=== PATIENT | female | born 1960 | race Caucasian/White ===

== ENCOUNTER 2016-11-22 07:31 | Emergency (ER) | payer MEDICARE ==
[~2016-11-22] VITALS: Ht 167.6 cm; Wt 83.4 kg
[~2016-11-22 07:31] MED LIST: CLON.5 PO; DIAZ2 PO; ESTR.3 PO; LIPI20TA PO; MECL-62 PO; PROZ40CA PO; ZOFR4TAB3 SL
[2016-11-22 07:36] VITALS: BP 126/76; PULSE 82; RESP 18; TEMP 99.2; O2SAT 96
[2016-11-22] MEDS ORDERED: AMIT10TA6 PO (08:20)
[2016-11-22] MEDS ORDERED: AMOX500C PO (08:20)
--- NOTE | 2016-11-22 08:26 | PD ---
HPI Chief Complaint: Eye Problems/Injury Time Seen by Provider: 08:15 Travel History International Travel<30 days: No Contact w/Intl Traveler<30days: No Traveled to known affect area: No History of Present Illness HPI The patient is a 56-year-old female who presents to the emergency department for right eye difficulties. 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 The patient states she had a headache one week ago behind the right eye which resolved, however, last night she developed decreased vision of the right eye. The patient describes blurriness of the right eye with seeing "squiggles" throughout the entire right eye which are not located in one quadrant and continue to move, despite no eye movement. The patient denies any pain to the right eye. The patient moved to local area one year ago and does not have an provider relations representative. The patient denies any blunt trauma to the right eye. PFSH Past Medical History Atrial Fibrillation: Yes Anxiety: Yes Depression: Yes Cardiac Catheterization: Yes (CARDIAC ABLATIONS X2) Cardiovascular Problems: Yes (AFIB; ABLATION) High Cholesterol: Yes Fibromyalgia: Yes Immune Disorder: Yes (SJOGREN'S SYNDROME) ?: Not Menopausal: Yes : 4 Para: 4 Past Surgical History Cholecystectomy: Yes Hysterectomy: Yes Tonsillectomy: Yes Social History Alcohol Use: No Tobacco Use: No Substance Use: No Allergies-Medications (Allergen,Severity, Reaction): Coded Allergies: No Known Allergies (Unverified , 11/22/16) Reported Meds & Prescriptions Reported Meds & Active Scripts Active Reported Amoxicillin 500 Mg Cap 500 Mg PO BID Amitriptyline (Amitriptyline HCl) 10 Mg Tab Unknown Dose PO HS Premarin (Estrogens Conjugated) 0.3 Mg Tab 0.3 Mg PO DAILY Prozac (Fluoxetine HCl) 40 Mg Cap 40 Cap PO HS Review of Systems Except as stated in HPI: all other systems reviewed are Neg Eyes: Positive: Blurred Vision, Visual changes, No: Photophobia, Drainage, Redness, Foreign Body Sensation, Pain, Tearing HENT: Positive: Headaches (one week ago behind the right eye which has resolved ) Cardiovascular: No: Chest Pain or Discomfort Respiratory: No: Shortness of Breath Gastrointestinal: No: Nausea, Vomiting Physical Exam Narrative GENERAL: Awake, alert, nontoxic-appearing 56-year-old female who appears her stated age and is in no acute respiratory distress. SKIN: Focused skin assessment warm/dry. HEAD: Atraumatic. Normocephalic. EYES: Pupils equal and round. 4 mm bilateral and reactive. EOMs are intact without painful extraocular movements. ENT: No nasal bleeding or discharge. Mucous membranes pink and moist. NECK: Trachea midline. No JVD. MUSCULOSKELETAL: No obvious deformities. No clubbing. No cyanosis. No edema. NEUROLOGICAL: Awake and alert. No obvious cranial nerve deficits. Motor grossly within normal limits. Normal speech. PSYCHIATRIC: Appropriate mood and affect; insight and judgment normal. Data Data Last Documented VS Vital Signs Date Time Temp Pulse Resp B/P (MAP) Pulse Ox O2 Delivery O2 Flow Rate FiO2 11/22/16 08:58 84 16 128/76 (93) 97 Room Air 11/22/16 07:36 99.2 Orders Orders Atropine 1% Opth Soln (Atropine 1% Opth (11/22/16 08:30) [facility] Medical Decision Making Medical Screen Exam Complete: Yes Emergency Medical Condition: Yes Medical Record Reviewed: Yes Differential Diagnosis Differential diagnosis includes flash/floaters, retinal detachment, posterior uveitis, central retinal artery occlusion, central retinal vein occlusion, acute maculopathy, lens dislocation. Narrative Course Physical examination was performed, 1% atropine was applied to the right eye and funduscopic examination was performed. There was no obvious retinal detachment that I can visualize, however, patient's vision has changed from 20/ 20-20/40 with previous history of lens transplant and legal blindness of the left eye. Therefore, discussed the patient with the on-call provider relations representative, Dr. Parsons, who will evaluate the patient in the office today. Diagnosis Primary Impression: Vision changes Referrals: Nevaeh Parsons MD 1 day Follow-up in the office today Additional Instructions: Follow-up with Dr. Parsons, drive straight to the office to be evaluated sometime this morning. Wear sunglasses as the right eye is dilated. Med/Other Pt SpecificInfo: No Change to Meds Disposition: 01 DISCHARGE HOME Condition: Stable Javier Braun MD Nov 22, 2016 08:26
[2016-11-22] MEDS ORDERED: ATROPINE SULFATE 1% OPHT SOLN 2 ML BTL RIGHT EYE ONE (08:30)
[2016-11-22 08:58] VITALS: BP 128/76; PULSE 84; RESP 16; O2SAT 97
[2016-12-15] MEDS ORDERED: GABA300C5 PO (10:49)
== END 2016-11-22 09:07 | disposition home or self-care (01) ==
LOC: PHED 07:31
DX: H57.9 Unspecified disorder of eye and adnexa (principal); H54.62 Unqualified visual loss, left eye, normal vision right eye; E78.00 Pure hypercholesterolemia, unspecified; I48.91 Unspecified atrial fibrillation
CPT/HCPCS: 99283

== ENCOUNTER 2018-01-23 15:22 | Observation (INO) ==
--- NOTE | 2018-01-23 15:59 | ED ---
HPI General Chief Complaint: Dizziness Stated Complaint: Dizziness/Nausea Time Seen by Provider: 01/23/18 15:45 History of Present Illness HPI Narrative: 57-year-old woman presents with 2-hour history of sudden onset of dizziness, with a sense of unsteadiness and spinning, aggravated by movement or laying down, with associated nausea. She has no focal neurologic symptoms, no weakness, no difficulty speaking, no loss of consciousness or lightheadedness. Patient has past history of recurrent dizziness, diagnosed with vertigo, has been well treated with diazepam, but does not get much relief with meclizine. Characterization of patient's vertigo is difficult to obtain, and is not clear that she has had any formal otolaryngology consultation, but prior evaluation in 2016 shows a similar episode with a negative neurologic examination and negative CT scanning. Patient feels poorly in general, but no preceding constitutional or GI symptoms. Related Data Home Medications Medication Instructions Recorded Confirmed amitriptyline 50 mg PO DAILY 01/23/18 01/23/18 conjugated estrogens [Premarin] 0.45 mg PO DAILY 01/23/18 01/23/18 fluoxetine [Prozac] 40 mg PO DAILY 01/23/18 01/23/18 Allergies Allergy/AdvReac Type Severity Reaction Status Date / Time No Known Allergies Allergy Verified 01/23/18 15:31 [facility] Medical History Medical History Afib (Acute) H/O: hysterectomy (Acute) Menopausal depression (Acute) Surgical History Surgical History Hx of cholecystectomy (Acute) S/P ablation of atrial fibrillation (Acute) Social History Social History Substance History: No History of Abuse Second Hand Smoke Exposure: No Smoking Status: Never smoker How Often Do You Have a Drink Containing Alcohol: Monthly or less Exam Narrative Exam Narrative: GENERAL: Middle-aged woman, well-developed well-nourished, acutely ill, with nausea, retching fairly frequently. SKIN: Focused skin assessment warm/dry. HEAD: Atraumatic. Normocephalic. EYES: Pupils equal and round, markedly decreased visual acuity left eye secondary to prior amblyopia. No scleral icterus. No injection or drainage. No definite nystagmus ENT: No nasal bleeding or discharge. Mucous membranes pink and moist. Markedly positive stimulation of vertigo, with nausea and dizziness with head turning to the left, much less with head turning to the right NECK: Trachea midline. No JVD. CARDIOVASCULAR: Regular rate and rhythm. No murmur appreciated. RESPIRATORY: No accessory muscle use. Clear to auscultation. Breath sounds equal bilaterally. GASTROINTESTINAL: Abdomen soft, non-tender, nondistended. Hepatic and splenic margins not palpable. MUSCULOSKELETAL: No obvious deformities. No clubbing. No cyanosis. No edema. NEUROLOGICAL: Awake and alert. No obvious cranial nerve deficits. Motor grossly within normal limits. Normal speech. Unable to perform full Yovanny- Hallpike maneuvers due to acuity of vertigo and vomiting. PSYCHIATRIC: Appropriate mood and affect; insight and judgment normal. Course Initial Documented Vital Signs Temperature 97.7 F 01/23/18 15:27 Pulse Rate 82 01/23/18 15:27 Respiratory Rate 16 01/23/18 15:27 Blood Pressure 129/81 01/23/18 15:27 Pulse Oximetry 98 01/23/18 15:27 Last Documented Vital Signs Temperature 97.7 F 01/23/18 15:27 Pulse Rate 78 01/23/18 16:06 Respiratory Rate 18 01/23/18 16:06 Blood Pressure 130/82 01/23/18 16:06 Pulse Oximetry 97 01/23/18 16:06 Medical Decision Making MDM Narrative Medical decision making narrative: benzodiazepines, as well as antiemetics, will need hospitalization for control of symptoms and rehydration. Patient consulted with Dr. Stoddard, she accepts patient for transfer.Patient has an acute peripheral onset vertigo, likely benign positional, but with inadequate treatment in the emergency department with repeated rounds of benzodiazepines or antiemetics, will need hospitalization for symptom control and hydration. Dr. Stoddard consulted at 1910 hrs., except patient for admission. Medical Screen Exam Complete: Yes Emergency Medical Condition: Yes Lab Data Result diagrams: 01/23/18 16:30 01/23/18 16:30 Lab Results 01/23/18 01/23/18 01/23/18 Range/Units 16:30 16:30 16:30 CBC w Diff Auto diff final WBC 7.4 (4.0-11.0) th/mm3 RBC 5.14 (4.00-5.30) mil/mm3 Hgb 14.3 (11.6-15.3) gm/dL Hct 44.1 (35.0-46.0) % MCV 85.9 (80.0-100.0) fL MCH 27.9 (27.0-34.0) pg MCHC 32.5 (32.0-36.0) % RDW 12.9 (11.6-17.2) % Plt Count 232 (150-450) th/mm3 MPV 9.4 (7.0-11.0) fL Neut % (Auto) 67.7 (16.0-70.0) % Lymph % (Auto) 24.3 (9.0-44.0) % [place] % (Auto) 5.6 (0.0-8.0) % Eos % (Auto) 1.6 (0.0-4.0) % Baso % (Auto) 0.8 (0.0-2.0) % Neut # (Auto) 5.1 (1.8-7.7) th/mm3 Lymph # (Auto) 1.8 (1.0-4.8) th/mm3 [place] # (Auto) 0.4 (0.0-0.9) th/mm3 Eos # (Auto) 0.1 (0.0-0.4) th/mm3 Baso # (Auto) 0.1 (0.0-0.2) th/mm3 WBC Differential . Differential Comment . PT 9.9 (9.8-11.6) sec INR 1.0 Ratio Sodium 141 (136-145) meq/L Potassium 4.0 (3.5-5.1) meq/L Chloride 106 (98-107) meq/L Carbon Dioxide 27.9 (21.0-32.0) meq/L Anion Gap 7 (5-15) meq/L BUN 17 (7-18) mg/dL Creatinine 0.93 (0.50-1.00) mg/dL Estimated GFR 62 L (>89) mL/min Random Glucose 99 (74-106) mg/dL Calcium 8.8 (8.5-10.1) mg/dL Total Bilirubin 0.3 (0.2-1.0) mg/dL AST 18 (15-37) U/L ALT 19 (10-53) U/L Alkaline Phosphatase 66 (45-117) U/L Total Protein 7.6 (6.4-8.2) g/dL Albumin 3.8 (3.4-5.0) g/dL Imaging Data Radiologist's impression: Head CT 01/23/18 17:01 CONCLUSION: Negative noncontrast head CT. . Discharge Plan Discharge Disposition Patient Disposition: ED Admit(ED Internal Use Only) Discharge Condition Condition: Stable Discharge Details Diagnosis: Vertigo, Dizziness Physicians Team ED Provider: Stiven Keller Primary Care Provider: Mayco Payne Rxs /Orders / Referrals /Forms Prescriptions: No Action fluoxetine [Prozac] 40 mg Capsule 40 mg PO DAILY RF: 0 amitriptyline 50 mg Tablet 50 mg PO DAILY RF: 0 conjugated estrogens [Premarin] 0.45 mg Tablet 0.45 mg PO DAILY RF: 0 Discharge Interventions Interventions: Vital Signs Last Done: 01/23/18 16:06 Status ED Status: With Doctor
[2018-01-23 17:15] LABS: Baso # (Auto) 0.1 th/mm3 (0.0-0.2); Baso % (Auto) 0.8 % (0.0-2.0); Eos # (Auto) 0.1 th/mm3 (0.0-0.4); Eos % (Auto) 1.6 % (0.0-4.0); Hematocrit 44.1 % (35.0-46.0); Hemoglobin 14.3 gm/dL (11.6-15.3); Lymph # (Auto) 1.8 th/mm3 (1.0-4.8); Lymph % (Auto) 24.3 % (9.0-44.0); Mean Corpuscular HGB Conc 32.5 % (32.0-36.0); Mean Corpuscular Hemoglobin 27.9 pg (27.0-34.0); Mean Corpuscular Volume 85.9 fL (80.0-100.0); Mean Platelet Volume 9.4 fL (7.0-11.0); Mono # (Auto) 0.4 th/mm3 (0.0-0.9); Mono % (Auto) 5.6 % (0.0-8.0); Neut # (Auto) 5.1 th/mm3 (1.8-7.7); Neut % (Auto) 67.7 % (16.0-70.0); Platelet Count 232 th/mm3 (150-450); Red Blood Count 5.14 mil/mm3 (4.00-5.30); Red Cell Distribution Width 12.9 % (11.6-17.2); White Blood Count 7.4 th/mm3 (4.0-11.0)
[2018-01-23 17:31] LABS: Chloride 106 meq/L (98-107); Sodium 141 meq/L (136-145)
[2018-01-23 17:34] LABS: Albumin 3.8 g/dL (3.4-5.0); Anion Gap 7 meq/L (5-15); Calcium 8.8 mg/dL (8.5-10.1); Carbon Dioxide 27.9 meq/L (21.0-32.0); Glucose,Random 99 mg/dL (74-106)
[2018-01-23 17:35] LABS: Blood Urea Nitrogen 17 mg/dL (7-18); Prothrombin Time 9.9 sec (9.8-11.6)
[2018-01-23 17:37] LABS: Alanine Aminotransferase 19 U/L (10-53); Aspartate Aminotransferase 18 U/L (15-37)
[2018-01-23 17:38] LABS: Glomerular Filtration Rate 62 mL/min (>89)
[2018-01-23 17:39] LABS: Total Protein 7.6 g/dL (6.4-8.2)
[2018-01-23 17:40] LABS: Alkaline Phosphatase 66 U/L (45-117)
--- NOTE | 2018-01-23 18:05 | CT ---
EXAM DATE: 01/23/2018 6:00 PM EST AGE/SEX: 57 years / Female INDICATIONS: Dizziness. CLINICAL DATA: This is the patient's initial encounter. Patient reports that signs and symptoms have been present for 1 day and indicates a pain score of 0/10. MEDICAL/SURGICAL HISTORY: None. Hysterectomy. Cholecystectomy. RADIATION DOSE: 52.05 CTDI (mGy) COMPARISON: [facility], CT BRAIN W/O CONTRAST, 01/04/2016. . TECHNIQUE: CT of the head without contrast. Using automated exposure control and adjustment of the mA and/or kV according to patient size, radiation dose was kept as low as reasonably achievable to ob tain optimal diagnostic quality images. DICOM format image data is available electronically for revi ew and comparison. FINDINGS: Cerebrum: The ventricles are normal for age. No evidence of midline shift, mass lesion, hemorrhage or acute infarction. No extraaxial fluid collections are seen. Posterior Fossa: The cerebellum and brainstem are intact. The 4th ventricle is midline. The cerebe llopontine angle is unremarkable. Extracranial: The visualized portion of the orbits is intact. Skull: The calvaria is intact. No evidence of skull fracture. CONCLUSION: Negative noncontrast head CT. . Electronically signed by: Jamal Rojas MD 01/23/2018 6:04 PM EST
[2018-01-23] MEDS ORDERED: diazePAM 5 MG Tablet PO ONE (18:59)
[2018-01-23] MEDS ORDERED: Bisacodyl 10 MG Supp RECTAL PRN (19:10)
[2018-01-23] MEDS ORDERED: Acetaminophen 325 MG Tablet PO PRN (19:10)
[2018-01-23] MEDS: Senna/Docusate Sodium 8.6/50 MG Tablet PO SCH (21:36)
[2018-01-23] MEDS ORDERED: diazePAM 5 MG Tablet PO PRN (22:53)
[2018-01-24 06:59] LABS: Baso % (Auto) 0.6 % (0.0-2.0); Eos # (Auto) 0.1 th/mm3 (0.0-0.4); Eos % (Auto) 2.4 % (0.0-4.0); Hematocrit 41.3 % (35.0-46.0); Hemoglobin 13.8 gm/dL (11.6-15.3); Lymph # (Auto) 1.8 th/mm3 (1.0-4.8); Mean Corpuscular HGB Conc 33.5 % (32.0-36.0); Mean Corpuscular Hemoglobin 28.4 pg (27.0-34.0); Mean Corpuscular Volume 84.9 fL (80.0-100.0); Mean Platelet Volume 8.1 fL (7.0-11.0); Mono # (Auto) 0.5 th/mm3 (0.0-0.9); Neut # (Auto) 3.4 th/mm3 (1.8-7.7); Platelet Count 205 th/mm3 (150-450); Red Blood Count 4.86 mil/mm3 (4.00-5.30); Red Cell Distribution Width 12.4 % (11.6-17.2); White Blood Count 5.8 th/mm3 (4.0-11.0)
[2018-01-24 07:01] LABS: Potassium 3.9 meq/L (3.5-5.1)
[2018-01-24 07:03] LABS: Calcium 8.4 mg/dL (8.5-10.1)
[2018-01-24 07:04] LABS: Carbon Dioxide 28.7 meq/L (21.0-32.0)
[2018-01-24] MEDS: Senna/Docusate Sodium 8.6/50 MG Tablet PO SCH (09:45)
--- NOTE | 2018-01-24 11:12 | P.PNIM ---
Subjective Interval history: cc dizzy 57-year-old female with history of vertigo presents with severe acute episode. Onset was sudden lasting for several hours with severe dizziness nausea vomiting. Patient states she has not had an episode for over a year, and ran out of her Valium which controls her symptoms, she tried meclizine without effect which is normal for her. She denies any recent illness no fever chills nausea vomiting headache or other symptoms. She was treated in the emergency room with Valium and feels much better. She has been ambulating with physical therapy doing quite well. The symptoms or much worse than her prior episodes of vertigo but similar. PMH: Paroxysmal atrial fibrillation, fibromyalgia PSXHX: Atrial ablation x2, cholecystectomy, hysterectomy SOC hx denies tobacco, denies alcohol FAM HX Mom and dad both healthy, she denies history of heart attack stroke or cancer Physical Exam Vital signs: Last Vital Signs Temp 97.9 F 01/24/18 08:00 Pulse 77 01/24/18 08:00 Resp 18 01/24/18 08:00 BP 112/64 01/24/18 08:00 Pulse Ox 95 01/24/18 08:00 Intake & Output 01/22/18 01/23/18 01/24/18 01/25/18 06:59 06:59 06:59 06:59 Intake Total 300 / 300 Output Total 500 / 500 Balance -200 / -200 Weight 85.5 kg Well-nourished pleasant 57-year-old female HEENT normocephalic atraumatic pupils equal reactive sclerae anicteric Oral mucosa is moist posterior pharynx clear Neck is supple no JVD trachea midline thyroid smooth not enlarged Anterior chest wall without mass or tenderness to palpation Heart S1-S2 is regular without significant murmur gallops or clicks Lungs clear bilateral no wheezes no rhonchi Abdomen soft nondistended positive bowel sounds no guarding rebound rigidity no palpable mass Back exam no CVA tenderness or mass Lymph nodes no inguinal axillary or cervical adenopathy noted Extremities no clubbing cyanosis or edema no calf tenderness peripheral pulses palpable Neurologic cranial nerves II through XII appear grossly intact moving all her extremities with 5 out of 5 strength no clonus or rigidity sensation appears intact Skin exam warm and dry with decreased turgor no sores or rashes noted Results Labs CBC & Chem 7: 01/24/18 06:22 01/24/18 06:22 Imaging Imaging: Impressions Head CT 01/23/18 17:01 CONCLUSION: Negative noncontrast head CT. . Assessment and Plan Plan Acute intractable vertigo, peripheral, that is resolved status post Valium. Patient has history of vertigo, and her episode has resolved. Patient is clinically stable for discharge home and outpatient follow-up. Fibromyalgia continue home medications Atrial fibrillation history status post ablation, stable, Postmenopausal on Premarin. Progress Note: Quality VTE Deep Vein Thrombosis/Pulmonary Embolism Present on Admission: No
== END 2018-01-24 12:35 | disposition home or self-care (01) ==
LOC: PHED 15:22 → PHEDH 15:22 → PH3 20:26
PROVIDERS: ADMIT Internal Medicine; ATTEND Internal Medicine
DX: Z90.49 Acquired absence of other specified parts of digestive tract; I48.0 Paroxysmal atrial fibrillation; Z90.710 Acquired absence of both cervix and uterus; R42 Dizziness and giddiness; M79.7 Fibromyalgia